=== PATIENT | female | born 1975 | race Caucasian/White ===

== ENCOUNTER → 2023-08-21 09:26 | Outpatient (REF) | payer BC, SELFPAY | LOC: HWRAD 09:26 | PROVIDERS: ATTENDING PHYSICIAN Physician Assistant Medical | DX: R79.89 Other specified abnormal findings of blood chemistry (principal) | CPT/HCPCS: 76700 ==

== ENCOUNTER 2024-02-27 19:35 | Inpatient (IN) | payer BC, SELFPAY ==
[2024-02-27] VITALS (10 sets, daily range): BP systolic 97–126; BP diastolic 63–84; PULSE 2–77; BMI 32.6
[2024-02-27 15:40] LABS: % Basophils 1.3 % (0-2); % Eosinophils 1.8 % (0-6); % Lymphocytes 19.5 % (20.5-51.1); % Monocytes 11.1 % (1.7-9.3); % Neutrophils 65.3 % (42.2-75.2); Absolute Basophils 0.1 10^3/uL (0-0.2); Absolute Eosinophils 0.1 10^3/uL (0-0.7); Absolute Immature Granulocytes 0.1 10^3/uL (0-0.05); Absolute Lymphocytes 1.5 10^3/uL (1.2-3.4); Absolute Monocytes 0.9 10^3/uL (0.1-0.6); Hematocrit 41.8 % (37.0-47.0); Hemoglobin 11.5 g/dL (12.0-16.0); Mean Corp Hgb Conc. 27.5 g/dL (33.0-37.0); Mean Corpuscular Hgb 25.2 pg (27.0-31.0); Mean Corpuscular Volume 91.7 fL (81.0-99.0); Nucleated Red Blood Cells % 0 %; Platelet Count 264 10^3/uL (130-400); Red Blood Cell Count 4.56 10^6/uL (4.20-5.40); Red Cell Dist. Width 14.5 % (11.5-14.5); White Blood Cell Count 7.6 10^3/uL (4.8-10.8)
[2024-02-27 15:44] LABS: ALT (SGPT) 63 U/L (0-35); AST (SGOT) 31 U/L (14-36); Albumin 3.5 g/dl (3.5-5.0); Alkaline Phosphatase 161 U/L (38-126); Blood Urea Nitrogen 12 mg/dl (7-17); Calcium 9.3 mg/dl (8.4-10.2); Chloride 93 mmol/L (98-107); Glucose 105 mg/dl (70-99); Potassium 3.5 mmol/L (3.5-5.1); Sodium 146 mmol/L (135-145); Total Bilirubin 0.9 mg/dl (0.2-1.3); Total Protein 6.4 g/dl (6.3-8.2); eGFR > 60.00
[2024-02-27 15:45] LABS: COVID-19 Antigen Negative (Negative)
[2024-02-27 16:03] LABS: Carbon Dioxide 43 mmol/L (22-30); Hypochromasia 1+; Macrocytosis Slight
[2024-02-27 16:04] LABS: Stomatocytes 1+
[2024-02-27 16:05] LABS: Anisocytosis 1+; Normal RBC Morphology No
--- NOTE | 2024-02-27 16:52 | ED.GENMED ---
History of Present Illness
General
Chief Complaint: Breathing Problem
Time Seen by Provider: 02/27/24 16:27
History of Present Illness
History of Present Illness:
48-year-old female with history of restrictive lung disease, prior subdural hematoma, and respiratory failure status post tracheostomy and subsequent reversal presents to the emergency department for evaluation of fatigue and malaise for the past 4
to 5 days. No coughing. Noted to have suboptimal oxygen saturations at nighttime while on supplemental O2, normally on 1 L nasal cannula but was increased to as high as 4 L by family. They note that the fatigue did not noticeably improve despite
improvement in oxygenation. No fevers or chills reported
Past History
Past History
ED Past Medical History: GERD
ED Past Surgical History: None
Social History
Tobacco: Smoker
Alcohol: None
Drug: None
Personal:
Living: with family
Review of Systems
Review of Systems
Allergies reviewed?: Yes
All Other Systems: ROS reviewed and negative except as documented in HPI and ROS
Phy Exam
Physical Exam
Physical Exam:
GEN: Somnolent but arouses easily to voice
HEENT: Oral mucosa moist, no scleral icterus
Cardiac: Regular rate and rhythm, subtle systolic murmur heard at the left sternal border
Lung: No respiratory distress, no tachypnea
MSK: No gross deformity or injuries
Skin: Good color, no pallor or jaundice, no rashes
Neuro: AO x3, moves all extremities freely
Psych: Calm, cooperative
Scores
Heart Failure Risk
Heart Failure Risk Score: Not Applicable
Course
Orders/Labs/Results
Orders:
Orders
02/27/24 Breakfast
Cholesterol Lowering
Cholesterol Lowering: Sodium, 2 Gram
02/27/24 15:06
CXR2 [CR Chest - 2 Views ] Urgent
Comment:
Reason For Exam: difficulty breathing
02/27/24 15:15
COVID-19 Antigen Urgent
Source: Nasal Swab
Complete Blood Count/With Diff Urgent
Comprehensive Metabolic Panel Urgent
NT-proBNP Urgent
Comment: ADDON
Influenza A+B Rapid Molecular Urgent
VIDAL Source: Nasal Swab
Specimen Description:
02/27/24 16:51
CefTRIAXone [Rocephin] 1,000 mg IV NOW STA
Doxycycline [Vibramycin] 100 mg PO NOW STA
02/27/24 17:06
ABG [Arterial Blood Gas] Urgent
%Oxygen/Room Air: 99
Comment: 4L NC
02/27/24 18:48
Weight As Directed
Frequency: Once
02/27/24 18:57
Admit/Transfer Patient As Directed
Co-Sign Provider:
Level of Care: Inpatient admission
Assign to:: ICU
Physician / Group: brittaniy
Diagnosis: PNA, acute on chr hypercapnic hypoxic RF, acute on chr Resp acidosis
Reason for Hospitalization: Rt sided PNA: suspect recurrent: afebrile and nl WCC
Associated with acute on chr hypercapnic hypoxic RF
Compensated acute on chr Resp acidosis
Expected length of stay greater than two midnights?: Yes
ELOS- Estimated Length of Stay in days: 7
I certify the patient meets the requirements for IP care: Yes
02/27/24 18:59
Add On- LAB Urgent
Tests Added?: pro bnp
Code Status As Directed
Resuscitation Status: Full Code
02/27/24 20:55
Famotidine [Pepcid] 20 mg PO BID
02/27/24 20:55
Activity As Directed
Activity Level: Out of Bed-Early Mobility
Intake/ Output As Directed
Frequency: Per unit guidelines
Vital Signs As Directed
Frequency: Per unit guidelines
Weight As Directed
Frequency: Once
Comment: on admission
Bipap [RESP] Routine
Patient to use own unit?: No
Inspiratory Pressure (cm H2O): 14
Expiratory Pressure (cm H2O): 4
Pulse Ox/cont/shift [RESP] Routine
Quantity: 1
Pt Eval And Treat Routine
Activity Level: With Assistance
DX Deep Vein Thrombosis Video Routine
02/28/24 06:00
Complete Blood Count/No Diff IN AM
Comprehensive Metabolic Panel IN AM
Procalcitonin IN AM
PCT Algorithmm Indication: Respiratory
02/28/24 08:00
Doxycycline [Vibramycin] 100 mg PO Q12
Midodrine [ProAmatine] 10 mg PO DAILY
02/28/24 18:00
CefTRIAXone [Rocephin] 1,000 mg IV Q24H
Enoxaparin Sodium [Lovenox] 40 mg SC QPM
02/29/24 06:00
Comprehensive Metabolic Panel IN AM
03/01/24 06:00
Comprehensive Metabolic Panel IN AM
Abnormal Lab Results
02/27/24 02/27/24
15:15 17:06
Hgb 11.5 L g/dL
(12.0-16.0)
MCH 25.2 L pg
(27.0-31.0)
MCHC 27.5 L g/dL
(33.0-37.0)
Abs Immat Gran (auto) 0.1 H 10^3/uL
(0-0.05)
Absolute Monos (auto) 0.9 H 10^3/uL
(0.1-0.6)
Immature Gran % 1.0 H %
(0-0.5)
Lymphocytes % 19.5 L %
(20.5-51.1)
Monocytes % 11.1 H %
(1.7-9.3)
pCO2 80 H* mmHg
(32-35)
pO2 121 H mmHg
(83-108)
HCO3 49.6 H* mmol/L
(21-28)
ABG O2 Sat (Measured) 99.8 H %
(94-98)
Sodium 146 H mmol/L
(135-145)
Chloride 93 L mmol/L
(98-107)
Carbon Dioxide 43 H mmol/L
(22-30)
Glucose 105 H mg/dl
(70-99)
ALT 63 H U/L
(0-35)
Alkaline Phosphatase 161 H U/L
(38-126)
02/27/24 15:15
02/27/24 15:15
Vital Signs
Initial and Last Documented VS:
Initial Vital Signs
Temp Pulse Resp BP Pulse Ox
97.6 F 68 22 126/84 100
02/27/24 14:56 02/27/24 14:56 02/27/24 14:56 02/27/24 14:56 02/27/24 14:56
Last Documented Vital Signs
Temp Pulse Resp BP Pulse Ox
97.6 F 74 14 110/74 93
02/27/24 14:56 02/27/24 21:06 02/27/24 21:06 02/27/24 19:01 02/27/24 21:00
MDM/Problems Addressed
MDM/Problems Addressed:
Patient arriving with generalized fatigue, she does appear somewhat somnolent, after initial workup revealing right sided pneumonia but otherwise normal labs and ABG was checked showing significant hypercapnia although a large component of this is
very likely chronic evidenced by markedly elevated bicarb. Patient was advised that we should start BiPAP however she declined, admitted to the hospitalist service who then further encouraged the use of BiPAP which she eventually consented to.
BiPAP initiated in the ED and admitted to the intensive care unit
*Critical Care Note
Total Time (30-74mins, 75-104mins- exclusive of procedures): 40 minutes
comment:
Critical care time: 40 minutes
Critical care time was exclusive of: Separately billable procedures, treating other patients, and teaching time
Critical care was necessary to treat or prevent imminent or life-threatening deterioration of the following conditions: Hypercapnic respiratory failure
Critical care time spent personally by me on the following activities:
[x] Review of old charts
[x] Obtaining history from patient or surrogate
[x] Ordering and review of the laboratory studies
[x] Ordering and review of radiographic studies
[x] Ordering and performing treatments and interventions
[x] Patient patient's response to treatment
[x] Development of treatment plan with patient or surrogate
ED Attending Note
-
Portions of this chart may have been created with voice recognition software.� Occasional wrong word or��sound alike� substitutions may have occurred due to the inherent limitations of voice recognition software.
Discharge Plan
Departure
Patient Disposition: Admit
Date of Disposition: 02/27/24
Time of Disposition: 17:49
Admit to: Med/Surg
Presentation/result/management discussed w/ accepting MD/DO: Hospitalist
Discharge Problem:
Community acquired pneumonia, Acute and chronic respiratory failure with hypercapnia
Interventions
Interventions:
*Risk Screen - Suicide Last Done: 02/27/24 16:59
*General Assessment Last Done: 02/27/24 15:04
*Neglect/Abuse Screening Last Done: 02/27/24 21:11
ED- Fall Risk Assessment Last Done: 02/27/24 21:11
*ED COVID-19 Vaccine History Last Done: 02/27/24 16:59
*Nursing Disposition Last Done: 02/27/24 21:11
ED- Cardiac Assessment Last Done: 02/27/24 18:51
ED- Pulmonary Assessment Last Done: 02/27/24 19:26
Discharge Date and Time
Discharge Date/Time: 02/27/24 21:12
[2024-02-27 17:23] LABS: B.E. 20.9 mmol/L; O2 Saturation % 99.8 % (94-98); PO2 121 mmHg (83-108)
[2024-02-27 17:24] LABS: HCO3 49.6 mmol/L (21-28); PCO2 80 mmHg (32-35)
[2024-02-27] MEDS: ROCEPHIN 1000 MG IV (17:34)
[2024-02-27] MEDS: VIBRAMYCIN 100 MG PO (17:34)
--- NOTE | 2024-02-27 18:51 | HPS.HSE ---
Family Physician
-
Family Physician: Shahrzad Cordova
Chief Complaint
-
Low POx than usual, more chr home O2 need
History of Present Illness
48FHX restrictive lung disease, HX subdural hematoma in 2022 , and chr respiratory failure status post tracheostomy and subsequent reversal seen at ER:
- Evaluation o fatigue and malaise for the past 4 to 5 days.
- Noted suboptimal POx at night while baseline needs f 1 L nasal cannula but increased to as high as 4 L by family.
- Denied coughing. They note that the fatigue did not noticeably improve despite improvement in oxygenation. No fevers or chills reported
Medical History
Past Medical History
Past Medical History: Reports Other
Additional Past Medical History:
Past medical history and archive reviewed:
GERD
Urinary incontinence.
Family history of muscular dystrophy
Social history: Lives with the family, the rest cannot be obtained
Family history: Positive for some form of muscular dystrophy the rest cannot be obtained.
Past Surgical History: Reports Other
Social History
Unable to obtain full social history at this time due to: Other
Living: Other
Family History
Family History: Other
Allergies / Home Medications
Allergies reflects when Allergies were last updated in [facility].
Home Medications with original date entered in [facility]
Allergy/Medication List:
Allergies
Allergy/AdvReac Type Severity Reaction Status Date / Time
No Known Allergies Allergy Verified 12/09/22 12:59
Home Medications
famotidine 20 mg tablet (Pepcid) 20 mg PO BID PRN acid reflux 12/09/22
mirabegron 50 mg tablet,extended release 24 hr (Myrbetriq) 50 mg PO QPM 12/09/22
Review of Systems
-
Constitutional: Reports See HPI
EENT: Reports No Symptoms
Respiratory: Reports See HPI
Cardiac: Reports No Symptoms
Abdomen/GI: Reports No Symptoms
: Reports No Symptoms
Musculoskeletal: Reports No Symptoms
Skin: Reports No Symptoms
Neurological: Reports No Symptoms
Endocrine: Reports No Symptoms
Hematologic/Lymphatic: Reports No Symptoms
Psych: Reports No Symptoms
Physical Exam
Vital Signs
Vital Signs
Temp Pulse Resp BP Pulse Ox
97.6 F 66 14 117/68 98
02/27/24 14:56 02/27/24 18:45 02/27/24 18:30 02/27/24 18:00 02/27/24 18:45
Physical Exam
General: Other (Lethargig but appropriate )
HEENT: NormoCephalic, Moist mucous membranes and Atraumatic
Respiratory: Clear
Cardiac: S1/S2 and Regular Rhythm; No Murmur or Rub
GI: Soft, Non Tender, Non Distended and Normal Bowel Sounds; No Organomegaly
Rectal: Deferred by Provider
Musculoskeletal: No Clubbing, No Cyanosis and No Edema
Skin: No Rash
Neuro: Nonfocal/grossly intact
Psych: Calm
Laboratory Results
-
02/27/24 15:15
02/27/24 15:15
Laboratory Results
pH 7.40 (7.35-7.45) 02/27/24 17:06
pCO2 80 mmHg (32-35) H* 02/27/24 17:06
pO2 121 mmHg (83-108) H 02/27/24 17:06
HCO3 49.6 mmol/L (21-28) H* 02/27/24 17:06
Total Bilirubin 0.9 mg/dl (0.2-1.3) 02/27/24 15:15
AST 31 U/L (14-36) 02/27/24 15:15
ALT 63 U/L (0-35) H 02/27/24 15:15
Alkaline Phosphatase 161 U/L (38-126) H 02/27/24 15:15
Data Reviewed
-
Diagnostic Radiology: Report Reviewed by me
Lab Data: Labs Reviewed by me
Old Records: Reviewed
Impression/Plan
-
Vital Signs
Temp Pulse Resp BP Pulse Ox
97.6 F 66 14 117/68 98
02/27/24 14:56 02/27/24 18:45 02/27/24 18:30 02/27/24 18:00 02/27/24 18:45
12/12/22
06:00 02/27/24
14:56
Temp 97.6 F
Pulse 68
Resp Rate 22
Blood pressure 126/84
SaO2 100
Actual Weight 94.3 kg pending
Laboratory Tests
12/09/22 12/12/22 12/12/22
13:05 00:12 10:18
WBC
Hgb 11.0 L
Plt Count
pH
pCO2 72 H*
pO2 123 H
HCO3 43.6 H*
Base Excess
Sodium
Potassium
Chloride
Carbon Dioxide
Creatinine
eGFR
ALT 162 H
Alkaline Phosphatase
SARS-CoV-2 Antigen
02/27/24 02/27/24
15:15 17:06
WBC 7.6
Hgb 11.5 L
Plt Count 264
pH 7.40
pCO2 80 H*
pO2 121 H
HCO3 49.6 H*
Base Excess 20.9
Sodium 146 H
Potassium 3.5
Chloride 93 L
Carbon Dioxide 43 H
Creatinine 0.7
eGFR > 60.00
ALT 63 H
Alkaline Phosphatase 161 H
SARS-CoV-2 Antigen Negative
CXR
Findings chest a mild right infrahilar pneumonia. New
Mild mid right lung atelectasis versus scarring. New
12/11/22 CT chest
Moderate right lower lobe consolidation. Slightly improved.
Mild right upper lobe consolidation.
Stable. Mild left lower lobe consolidation. Progressed.
Last hospitalist admission: Date of Admission: 12/09/22 - Date of Discharge: 12/12/22
PDX:
change in mental status and hypoxic respiratory failure.
left subdural hematoma around 2 cm with 6 mm midline shift required TF to [place] neurosurgery services.
ASSESSMENT & PLAN
Rt sided PNA: suspect recurrent: afebrile and nl WCC
Associated with acute on chr hypercapnic hypoxic RF
Compensated acute on chr Resp acidosis required ICU admission
Suspicion for [facility]ICO and OHS
- Influenza is negative / COVID is negative
- check PCT
- IV CFTZ and PO Doxy
- She agreed to wear Bi PAP 06/07
- Computational Scientist consult
TME due to acute on chr hypercapnic hypoxic RF
She is awake, followed simple commands
HX diastolic CHF
12/09/2022 TTE; LVEF 68%, moderate TR with PA systolic of 56 mm Hg
- check admission wt
- check proBNP
-Hold of Lasix for now
HX Isolated distal deep vein thrombosis of the right soleal vein.
HX Moderate TR.
Estimated pulmonary artery pressure of 56 mmHg assuming a right atrial pressure of 8 mmHg.
GERD:
- Continue PPI
DVT prophylaxis: LMWH
Full code
ICU
Total Critical Care Time__65___ minutes.
I was immediately available to the patient and staff. I personally examined, reviewed labs, diagnostic images/reports, interpretations, treatment plans, discussed patient care with other providers and family or caregivers (if patient is unable to
make decisions), entered orders as appropriate and documented the medical record.
[2024-02-27 19:48] LABS: NT-proBNP 1750 pg/ml
[2024-02-27 21:35] LABS: O2 Saturation % 94.8 % (94-98); PO2 64 mmHg (83-108); pH 7.43 (7.35-7.45)
[2024-02-27 21:37] LABS: HCO3 47.8 mmol/L (21-28); PCO2 72 mmHg (32-35)
[2024-02-27] MEDS: PEPCID PO (22:28)
[2024-02-28] VITALS (24 sets, daily range): BP systolic 87–136; BP diastolic 54–89; PULSE 2–82; O2SAT 96; BMI 32.8
--- NOTE | 2024-02-28 01:31 | PTCARENOTE ---
Rec'd pt from ED c/o malaise and requiring more oxygen at night. Pt normally on 1L nc, increased to 4L nc. ABG 7.40/80/121/49.6/20.9/99.8, decision made to admit to ICU for BiPap. Antibiotics given in ED. Pt oriented/lethargic, arouses to voice. No
c/o pain, but uncomfortable when positioned on left side, 2/2 scoliosis history. As per family, pt currently attended outpatient PT at [facility] 3x/week, and uses a cane at home. Generalized weakness noted. Afebrile. VSS. Pulses palpable. Bipap
as ordered. Repeat ABG improved slightly. Pt tolerating mask and educated on importance of compliance. When providing mouth care, O2 Sat immediately to 70s, and improves within seconds when BiPap reapplied. Cholesterol lowering diet ordered for AM.
Purewick applied. Will monitor.
--- NOTE | 2024-02-28 05:00 | PTCARENOTE ---
Pt continues on bipap. When removed, pt desats quickly to 76%, and recovers quickly with mask replacement. Am labs sent, mom updated over the phone, Will monitor.
[2024-02-28 06:10] LABS: Hematocrit 38.1 % (37.0-47.0); Hemoglobin 10.6 g/dL (12.0-16.0); Mean Corp Hgb Conc. 27.8 g/dL (33.0-37.0); Mean Corpuscular Hgb 25.5 pg (27.0-31.0); Mean Corpuscular Volume 91.8 fL (81.0-99.0); Mean Platelet Volume 9.9 fL (7.4-10.4); Platelet Count 202 10^3/uL (130-400); Red Blood Cell Count 4.15 10^6/uL (4.20-5.40); Red Cell Dist. Width 14.6 % (11.5-14.5); White Blood Cell Count 6.2 10^3/uL (4.8-10.8)
[2024-02-28 06:12] LABS: INR 0.92; PT 12.8 Sec (11.4-14.6)
[2024-02-28 06:13] LABS: APTT 34.9 Sec (23.4-35.0)
[2024-02-28 06:20] LABS: ALT (SGPT) 48 U/L (0-35); AST (SGOT) 23 U/L (14-36); Albumin 3.1 g/dl (3.5-5.0); Alkaline Phosphatase 132 U/L (38-126); Blood Urea Nitrogen 12 mg/dl (7-17); Calcium 9.2 mg/dl (8.4-10.2); Chloride 94 mmol/L (98-107); Estimated Creatinine Clearance 107 ml/min; Glucose 79 mg/dl (70-99); Magnesium 1.9 mg/dl (1.6-2.3); Phosphorus 2.3 mg/dl (2.5-4.5); Sodium 146 mmol/L (135-145); Total Bilirubin 0.9 mg/dl (0.2-1.3); Total Protein 5.7 g/dl (6.3-8.2); eGFR > 60.00
[2024-02-28 06:36] LABS: Procalcitonin < 0.05 ng/ml (0.0-0.25)
[2024-02-28 06:40] LABS: Carbon Dioxide 43 mmol/L (22-30)
[2024-02-28] MEDS: ProAmatine 10 MG PO (08:14)
[2024-02-28] MEDS: VIBRAMYCIN 100 MG PO ×2 (08:14→20:34)
[2024-02-28] MEDS: KCL 270 MEQ IV (08:14)
[2024-02-28] MEDS: PEPCID 20 MG PO ×2 (08:14→20:34)
--- NOTE | 2024-02-28 08:39 | W.PN.HOSP.TC ---
Today's Communication/Plan
-
PT/OT
cont abx
consideration for transfer out of ICU
Assessment / Plan
Assessment / Plan
pt is a 48 year old female
Associated with acute on chronic hypercapnic hypoxic RF due to Rt sided PNA-- suspect recurrent--suspicion for obstructive sleep apnea and obesity hypoventilation syndrome--covid/flu negative--cont rocephin/doxy--await collar tacker consult
toxic metabolic encephalopathy likely due to acute on chronic Compensated Resp acidosis-- on BiPAP--follow for improvement
HX diastolic CHF --no exacerbation--last echo done 12/09/2022--no need for repeeat at this time
HX Isolated distal deep vein thrombosis of the right soleal vein
Hx SDH from anticoagulation for hx DVT--walks with a cane
HX Moderate TR
GERD- Continue PPI
DVT proph--SCDs
code status -- FULL CODE
Anticipated Discharge: > 48 hours
Subjective/Interval History
-
Date of Service: February 28, 2024
pt wouldn't or couldn't interact with me this AM--on BiPAP
Objective Data
-
Labs:
Laboratory Results
02/27/24 02/28/24 02/28/24
21:28 05:38 05:44
WBC 6.2
Hgb 10.6 L
Hct 38.1
Plt Count 202 D
PT 12.8
INR 0.92
APTT 34.9
HCO3 47.8 H*
Sodium 146 H
Potassium 3.0 L
Chloride 94 L
Carbon Dioxide 43 H
BUN 12
Creatinine 0.7
Glucose 79
Calcium 9.2
Total Bilirubin 0.9
AST 23
ALT 48 H
Alkaline Phosphatase 132 H
Vital Signs:
max temp for 24 hours
02/28/24
03:29
Temp 98.4 F
Vital Signs
Temp Pulse Resp BP Pulse Ox
98.4 F 72 14 111/69 89
02/28/24 07:55 02/28/24 08:30 02/28/24 08:30 02/28/24 08:30 02/28/24 08:30
Review of Systems
-
Unable to obtain full review of systems at this time due to: Acuity
Physical Exam
-
General: Well Developed, Well Nourished and No Apparent Distress
HEENT: Normocephalic, Atraumatic and Other (BiPAP)
Respiratory: Clear to Auscultation; Negative Wheezes or Rhonchi
Cardiac: Regular Rhythm and S1/S2; Negative Murmur
GI: Soft, Nontender, Nondistended and Normal Bowel Sounds
Musculoskeletal: No Clubbing, No Cyanosis and No Edema
Skin: Warm
Neuro: Awake
Psych: Calm
--- NOTE | 2024-02-28 09:12 | CM ---
Addendum entered by Monisha Beckwith 02/28/24 16:55:
Patient Alex; called back he stated that they had used [facility] [place]. Patient bringing picture of contact information to hospital tomorrow. Will need to send request for DME.
Addendum entered by Monisha Beckwith 02/28/24 16:40:
CM called to patient mother,and then to patient to request name of O2 provider. VM left requesting name of the O2 provider. CM will continue to follow for discharge planning needs.
Plan; home with VN; pending DME recommendation for BiPap requested.
Addendum entered by Monisha Beckwith 02/28/24 16:39:
CM called to patient mother to requ
Original Note:
Patient seen at bedside with physician. Patient on Bipap, patient stated that she has home O2 1 liter and is uncertain who it is from. Patient states that she lives in a 3 story home with her . Patient has PCP but is unsure of name. Patient
requested CM call to her to review assessment. CM will continue to follow for discharge planning needs.
Plan; home with VN vs SNF.
--- NOTE | 2024-02-28 11:32 | PTOTSP ---
Dysphagia Evaluation
Suspect oral/pharyngeal stages of swallowing WFL based on clinical bedside swallowing evaluation.
Recommend:
1. Regular, Thin
2. Medications as best tolerated
3. Strategies: reflux precautions given GERD and hiatal hernia
4. No further dysphagia tx warranted. If concerned for silent aspiration reconsult via video swallow study.
--- NOTE | 2024-02-28 11:52 | CON.INTV ---
Consultation
Consultation Request
Date/Time Consultation Requested: 02/27/2024 22:14
Date/Time Consultation Performed: 02/28/2024
Requesting Provider: Nathaniel Cuba
Performing Provider: Dr. Faria
Reason for Consultation: acute on chr hypercapnic hypoxic RF, PNA, TME
Medical History
-
History of Present Illness:
48-year-old female with medical history of restrictive lung disease, history of subdural hematoma 2022, GERD, urinary incontinence, DVT, respiratory failure status post tracheostomy and subsequent reversal presented to the emergency department with
fatigue and malaise for the past 4 to 5 days. She has a baseline of 1 L of oxygen at home, but has noticed increased oxygen requirements as high as 4 due to suboptimal pulse ox readings. Patient denied any chest pain, coughing, fever, chills. In
ED, O2 satting 93% on 2L via Bipap, afebrile, pulse 66, respiratory rate 14, BP 117/68, pH 7.4, pCO2 80, HCO3 49.6, WBC 7.6. proBNP 1, 750. chest x-ray revealed mild right infrahilar pneumonia and mid right lung atelectasis versus scarring. Flu
and COVID-negative. Patient was admitted for suspected recurrent right sided pneumonia with associated acute on chronic hypercapnic hypoxemic respiratory failure. ICU was consulted to address acute on chronic respiratory acidosis.
PMHx
Chronic back pain
Scoliosis
Subdural hematoma
Dysphagia
GERD
Urinary incontinence
Obesity
Restrictive lung disease
HFpEF (last echo 923 LVEF 68%)
DVT
Iron deficiency anemia
Family history of myotonic muscular dystrophy - only 1/3 of Mr. Sutherland's (dad) children had negative genetic test at [facility] (Mrs Sutherland and her other brother were not tested)
Past surgical hx:
Status post tracheostomy/PEG
Craniotomy r/t subdural hematoma
Past Medical History
Past Medical History: Other (Refer to above)
Past Surgical History: Other (Refer to above)
Social History
Tobacco: Former Smoker (Quit 2 years ago)
Living: With Family
Family History
Family History: Other (Family history of myotonic muscular dystrophy)
Allergies / Home Medications
Allergies
Allergy/AdvReac Type Severity Reaction Status Date / Time
No Known Allergies Allergy Verified 02/27/24 14:59
Home Medications
�Medication �Instructions �Recorded �Confirmed �Last Taken �Type
famotidine 20 mg tablet (Pepcid) 20 mg PO BID acid reflux 12/09/22 02/27/24 02/27/24 History
ascorbic acid (vitamin C) 500 mg 500 mg PO DAILY 02/27/24 02/27/24 02/27/24 History
tablet (Vitamin C)
cholecalciferol (vitamin D3) 25 25 mcg PO DAILY 02/27/24 02/27/24 02/27/24 History
mcg (1,000 unit) tablet
cyanocobalamin (vitamin B-12) 1,000 mcg PO DAILY 02/27/24 02/27/24 02/27/24 History
1,000 mcg tablet
ferrous sulfate 325 mg (65 mg 325 mg PO Q48H 02/27/24 02/27/24 02/26/24 History
iron) tablet
midodrine 5 mg tablet 10 mg PO DAILY 02/27/24 02/27/24 02/27/24 History
Review of Systems
-
History Source: Patient
Constitutional: Fever (n) and Fatigue
EENT: No Symptoms
Respiratory: No Symptoms (on 4L O2 no SOB or trouble breathing) and Cough (n)
Cardiac: No Symptoms, Chest Pain (n), Palpitations (n) and Syncope (n)
Abdomen/GI: No Symptoms, Abdominal Pain (n), Nausea (n), Vomiting (n), Diarrhea (n) and Constipated (n)
: No Symptoms
Neuro: No Symptoms, Headache (n) and Weakness (Generalized)
Vitals / Labs / Diagnostic Testing
Vital Signs
Temp Pulse Resp BP Pulse Ox
98.0 F 72 14 111/69 89
02/28/24 11:36 02/28/24 08:30 02/28/24 08:30 02/28/24 08:30 02/28/24 08:30
Lab Data
02/28/24 05:38
02/28/24 05:38
Laboratory Results
02/27/24 02/27/24 02/28/24
17:06 21:28 05:44
PT 12.8
INR 0.92
APTT 34.9
pH 7.40 7.43
pCO2 80 H* 72 H*
pO2 121 H 64 L
HCO3 49.6 H* 47.8 H*
O2 Delivery Level
Microbiology
02/27/24 15:15 Nasal Swab Influenza Types A & B (ABI) - Final
Negative for Influenza A & B, NAAT
Negative results must be combined with clinical observations
and patient history.
Nucleic Acid Amplification test (NAAT)performed on the
[employer] platform.
Diagnostic Testing:
Physical Exam
-
Cardiovascular: S1/S2, Regular Rhythm and Peripheral Edema (n)
Respiratory: Rales (Diffuse)
GI: Soft, Non Distended, Non Tender and Normal Bowel Sounds
Neurology: AO x 3
Skin: Warm
Assessment
-
48-year-old female with medical history of restrictive lung disease, history of subdural hematoma 2022, GERD, urinary incontinence, DVT, respiratory failure status post tracheostomy and subsequent reversal presented to the emergency department with
fatigue and malaise for the past 4 to 5 days. She has a baseline of 1 L of oxygen at home, but has noticed increased oxygen requirements as high as 4 due to suboptimal pulse ox readings. Patient denied any chest pain, coughing, fever, chills. In
ED, O2 satting 93% on 2L via Bipap, afebrile, pulse 66, respiratory rate 14, BP 117/68, pH 7.4, pCO2 80, HCO3 49.6, WBC 7.6. proBNP 1, 750. chest x-ray revealed mild right infrahilar pneumonia and mid right lung atelectasis versus scarring. Flu
and COVID-negative. Patient was admitted for suspected recurrent right sided pneumonia with associated acute on chronic hypercapnic hypoxemic respiratory failure. ICU was consulted to address acute on chronic respiratory acidosis.
Conditions prior to admission:
Chronic back pain
Scoliosis
Subdural hematoma
Dysphagia
GERD
Urinary incontinence
Obesity
Restrictive lung disease
HFpEF (last echo 923 LVEF 68%)
DVT
Iron deficiency anemia
Family history of myotonic muscular dystrophy - only 1/3 of Mr. Sutherland's (dad) children had negative genetic test at [facility] (Mrs Sutherland and her other brother were not tested)
Impression:
# Acute on chronic hypercapnic hypoxemic respiratory failure secondary to pneumonia
# Right infrahilar pneumonia
# Toxic metabolic encephalopathy
# Compensated acute on chronic respiratory acidosis
# Hypokalemia
# Hypophosphatemia
Plan:
Neuro:
-Toxic metabolic encephalopathy
-Improved/resolved - pt AAOx3 today
-Likely secondary to hypercapnic state
-Continue to monitor
Respiratory:
-Acute on chronic hypercapnic hypoxemic respiratory failure secondary to pneumonia
-On admission, pH 7.4, pCO2 80, pO2 121, HCO3 49.3
-Bipap overnight 06/11
-AM VBG pH 7.43 and pCO2 72
-Apparent compensated acute on chronic respiratory acidosis likely at baseline
-Suspect underlying CHICO
-Continue Bipap at night
-Keep SpO2 >90-94%
-Hx Restrictive lung disease
-PFTs
Cardiovascular:
-Hemodynamically stable
-Maintain MAP >65%
-Hx of HFpEF
-Last echo 11/2022 LVEF 68%, pulm artery pressure 56%
-Not in volume overload
-Chest x-ray not consistent with cardiopulm edema
-Pro BNP 1750
GI:
-Hx GERD
-Continue on home famotidine
Stable for downgrade out of ICU
Pulp Maker will continue to briefly long
Refer to attending note for further details
[2024-02-28] MEDS: KCL ELIXIR 40 MEQ PO (11:58)
[2024-02-28] MEDS: NEUTRA-PHOS POWDER PACKET 250 MG PO (11:58)
--- NOTE | 2024-02-28 12:25 | PTCARENOTE ---
No change in patient's assessment. patient is awake, alert, has used BSC, ordered lunch after speech eval. Encouraged to use bipap tonight, potential downgrade to tele status.
[2024-02-28] MEDS: STERILE WATER FOR INJECTION 10 ML IV (17:38)
[2024-02-28] MEDS: ROCEPHIN 1000 MG IV (17:38)
[2024-02-29] VITALS (7 sets, daily range): BP systolic 100–130; BP diastolic 65–75; PULSE 2–80
[2024-02-29 06:52] LABS: Venous Blood Gas B.E. 18.6 mmol/L (-4 to +4); Venous Blood Gas HCO3 45.9 mmol/L (22-27); Venous Blood Gas pCO2 66 mmHg (35-48); Venous Blood Gas pH 7.45 (7.32-7.43); Venous Blood Gas pO2 64 mmHg (30-50)
[2024-02-29 07:03] LABS: Hematocrit 39.5 % (37.0-47.0); Hemoglobin 11.3 g/dL (12.0-16.0); Mean Corp Hgb Conc. 28.6 g/dL (33.0-37.0); Mean Corpuscular Hgb 25.2 pg (27.0-31.0); Mean Platelet Volume 9.9 fL (7.4-10.4); Platelet Count 196 10^3/uL (130-400); Red Blood Cell Count 4.49 10^6/uL (4.20-5.40); Red Cell Dist. Width 14.6 % (11.5-14.5); White Blood Cell Count 6.6 10^3/uL (4.8-10.8)
[2024-02-29 07:18] LABS: ALT (SGPT) 36 U/L (0-35); AST (SGOT) 22 U/L (14-36); Albumin 3.3 g/dl (3.5-5.0); Alkaline Phosphatase 136 U/L (38-126); Blood Urea Nitrogen 12 mg/dl (7-17); Calcium 9.4 mg/dl (8.4-10.2); Chloride 96 mmol/L (98-107); Estimated Creatinine Clearance 94 ml/min; Glucose 93 mg/dl (70-99); Magnesium 1.7 mg/dl (1.6-2.3); Phosphorus 2.2 mg/dl (2.5-4.5); Potassium 3.8 mmol/L (3.5-5.1); Sodium 144 mmol/L (135-145); Total Bilirubin 0.9 mg/dl (0.2-1.3); Total Protein 5.9 g/dl (6.3-8.2); eGFR > 60.00
[2024-02-29 08:00] LABS: Carbon Dioxide 38 mmol/L (22-30)
[2024-02-29] MEDS: VIBRAMYCIN 100 MG PO ×2 (09:37→20:41)
[2024-02-29] MEDS: VITAMIN D3 (cholecalciferol) 25 MCG PO (09:37)
[2024-02-29] MEDS: ProAmatine 10 MG PO (09:37)
[2024-02-29] MEDS: VITAMIN B-12 1000 MCG PO (09:38)
[2024-02-29] MEDS: VITAMIN C 500 MG PO (09:38)
[2024-02-29] MEDS: PEPCID 20 MG PO ×2 (09:38→20:41)
--- NOTE | 2024-02-29 09:43 | W.PN.PUL3 ---
Today's Communication / Plan
-
Continue with BiPAP with sleep
Check NOX study tonight on BiPAP on room air, titrating O2 as needed to maintain SpO2 at 89% or greater
During the day, continue supplemental oxygen, titrating to keep SpO2 >90-94%
Check ambulatory pulse oximetry prior to discharge
PT/OT
Antibiotics
Outpatient imaging to follow-up pneumonia resolution
Case management consult to get patient BiPAP upon discharge
Pulmonary service will continue to follow along
Assessment
-
Impression:
#Altered mental status due to septic encephalopathy - AMS now resolved
#Right infrahilar pneumonia/CAP
#Acute on chronic hypoxic respiratory failure (uses O2 at home as needed, and is Rx 1L/min with sleep that she uses)
#Chronic hypercapnic respiratory failure (of note, initial blood gas obtained on 02/27/2024 was prior to her starting on BiPAP)
#Very severe restrictive lung defect (post-bronchodilator FVC: 1.41 L / 30%, T%, VC: 40% via PFT from 12/02/2023)
#Severe gas exchange capacity defect that normalizes when accounting for alveolar volume involving gas exchange (DLcoO: 37%, DLco/VA: 87% via PFT from 12/02/2023)
#Hypernatremia
#Metabolic alkalosis due to chronic hypercapnic respiratory failure
#Transaminitis
#Elevated proBNP
#History of chronic respiratory failure requiring tracheostomy and PEG placement (12/24/2022) with decannulation in 02/2023 - this event was due to some unknown cause of her hypoxia
# History of influenza A + MRSA pneumonia in March 2023 requiring intubation with trach/PEG placed on 04/06/2023 and decannulated on 04/23/2023
#Chronic GERD
#History of RLE DVT in the soleal vein (Dx on 12/10/2022)
#History of valvular heart disease with moderate TR and moderate pulmonary hypertension (seen on TTE from 12/09/2022)
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
decompressive hemicraniectomy (11/2022) + left cranioplasty (01/17/2023), history of oropharyngeal dysphagia s/p PEG (March 2022), former tobacco smoker ([id number] history, quit 2020), and anxiety disorder
Plan:
- Continue with antibiotics with ceftriaxone/doxycycline, and would complete a 7-day course assuming she continues to clinically improve and remains afebrile for 48 hours prior to stopping antibiotics
- Maintain SpO2 >90-94%
- Continue with BiPAP with sleep and prn during the day --> she says that the pressures were too high overnight so I will lower her pressure settings from 15/8 to 12/5cmH2O
- Continue with supplemental oxygen as needed through the BiPAP to maintain SpO2 goals as above
- I consulted CM to see if we can get her a BiPAP upon discharge; the patient is amenable to doing this and using BiPAP at home
- Consult PT/OT given her severe restrictive lung defect that she has; she may benefit from PT services as an outpatient
- Check NOX study tonight on BiPAP to assess her O2 needs to prepare for BiPAP home use
- Check ambulatory pulse oximetry prior to discharge
- Although her proBNP is elevated, she does not clinically appear to be volume overloaded or in acute decompensated heart failure, nor is there any evidence of acute pulmonary edema seen on CXR
-Comparatively, her proBNP is actually less than it was back in November 2022 when it was 2980 (currently 1750)
- Hold off on diuresis for now
- Maintain MAP>65
- She does take midodrine at home; ok to continue this with holding parameters
- Replete electrolytes with K>4, Mg>2
- Maintain euglycemia with goal BG 140-180
- Trend H/H and transfuse if needed to keep Hb>7g/dL; keep plt>20k, unless there is concern for bleeding then keep plt>50k
- prn nebulized bronchodilators - not currently bronchospastic
- Incentive spirometer encouraged 10x per hour for at least 4 hrs a day
- DVT ppx: SCDs given her Hx of subdural hematoma requiring decompressive hemicraniectomy in November 2022
Pulmonary service will continue to follow along.
Total time spent today was 37 minutes for this encounter. Time includes reviewing laboratory test/imaging results, reviewing pertinent medical records, obtaining and reviewing medical history, performing an appropriate exam, ordering medications,
tests and procedures. Time also includes documentation of this encounter, coordinating patient care and communicating with other healthcare professionals. Total time does not include separately billed tests performed on this date of service.
Subjective Data
-
Date of Service:
Date of Service: February 29, 2024
Chief Complaint: Pulmonary Follow Up
Subjective:
Patient was seen and evaluated today at bedside. Patient's mother is at bedside, and all questions were answered. Patient currently on 4 L/min nasal cannula saturating 96%. She wore the BiPAP overnight on 02/26 bled with 6 L/min. She says she was
able to use it the whole night and felt better with the reduced inspiratory pressures. She currently denies chest pain, BENNETT, abdominal pain, nausea, fevers or chills.
Review of Systems
General: Other (Negative unless mentioned above)
Objective Data
Data Reviewed
Vital Signs / I&O / Oxygen:
Vital Signs
Temp Pulse Resp BP Pulse Ox
97.8 F 73 16 121/75 97
02/29/24 07:00 02/29/24 07:00 02/29/24 07:00 02/29/24 07:00 02/29/24 07:00
Intake and Output
02/28/24 02/29/24 03/01/24
06:59 06:59 06:59
Intake Total 930 / 930
Output Total 350 / 350
Balance 580 / 580
SaO2 97
Nasal Cannula flow liters per 3
minute
Physical Exam
General: Respiratory Distress (negative), Comfortable, Chills (negative) and Sweats (negative)
HEENT: Normocephalic, Anicteric and Moist Mucous Membranes
Cardiovascular: S1-S2, Rub (negative) and Peripheral Edema (negative)
Respiratory: Wheeze (negative), Crackles (Bilateral), Rhonchi (negative), Non-Labored Respirations and Stridor (negative)
GI: Soft, Non Distended, Non Tender and Normal Bowel Sounds
Neurology: AO x 3 and Tremors (negative)
Skin: Warm, Dry, Cyanosis (negative) and Jaundice (negative)
Labs/Micro/Reports
Lab Data
02/29/24 06:25
02/29/24 06:25
Microbiology
02/27/24 15:15 Nasal Swab Influenza Types A & B (ABI) - Final
Negative for Influenza A & B, NAAT
Negative results must be combined with clinical observations
and patient history.
Nucleic Acid Amplification test (NAAT)performed on the
[employer] platform.
--- NOTE | 2024-02-29 13:05 | W.PN.HOSP.TC ---
Today's Communication/Plan
-
need BiPAP prior to d/c
Assessment / Plan
Assessment / Plan
pt is a 48 year old female
acute on chronic hypercapnic hypoxic RF due to Rt sided PNA (uses O2 at home as needed, and 1L/min with sleep that she uses)-- suspect recurrent--suspicion for obstructive sleep apnea and obesity hypoventilation syndrome--covid/flu negative--cont
rocephin/doxy--apprec scuba diving teacher consult, needs BiPAP at home
toxic metabolic encephalopathy likely due to acute on chronic Compensated Resp acidosis-- on BiPAP--follow for improvement--resolved
HX diastolic CHF --no exacerbation--last echo done 12/09/2022--no need for repeat at this time
HX Isolated distal deep vein thrombosis of the right soleal vein
Hx SDH from anticoagulation for hx DVT--walks with a cane
HX Moderate TR
GERD- Continue PPI
DVT proph--SCDs
code status -- FULL CODE
Anticipated Discharge: Within 24 hours
Subjective/Interval History
-
Date of Service: February 29, 2024
pt doing well--asking about d/c--explained needs BiPAP at home
Objective Data
-
Labs:
Laboratory Results
02/29/24
06:25
WBC 6.6
Hgb 11.3 L
Hct 39.5
Plt Count 196
Sodium 144
Potassium 3.8 D
Chloride 96 L
Carbon Dioxide 38 H
BUN 12
Creatinine 0.8
Glucose 93
Calcium 9.4
Total Bilirubin 0.9
AST 22
ALT 36 H
Alkaline Phosphatase 136 H
Vital Signs:
max temp for 24 hours
02/28/24
19:20
Temp 98.2 F
Vital Signs
Temp Pulse Resp BP Pulse Ox
97.8 F 73 16 121/75 97
02/29/24 07:00 02/29/24 07:00 02/29/24 07:00 02/29/24 07:00 02/29/24 07:00
I&O
02/28/24 02/29/24 03/01/24
06:59 06:59 06:59
Intake Total 930 / 930
Output Total 350 / 350
Balance 580 / 580
Review of Systems
-
All other systems: Reviewed and negative
Physical Exam
-
General: Well Developed, Well Nourished and No Apparent Distress
HEENT: Normocephalic, Atraumatic and Oxygen
Respiratory: Clear to Auscultation; Negative Wheezes, Rales or Rhonchi
Cardiac: Regular Rhythm and S1/S2; Negative Murmur
GI: Soft, Nontender, Nondistended and Normal Bowel Sounds
Musculoskeletal: No Clubbing, No Cyanosis and No Edema
Skin: Warm and Dry
Neuro: Awake
Psych: Calm
--- NOTE | 2024-02-29 13:07 | CM ---
CM contacted Oxygen Vendor ([employer]) via phone # [phone] regarding order for BiPAP
Script, Demographics and Clinicals faxed to vendor
[facility]; [address] [place] [id number]
[2024-02-29] MEDS: STERILE WATER FOR INJECTION 10 ML IV (17:16)
[2024-02-29] MEDS: ROCEPHIN IV (17:17)
[2024-02-29] MEDS: ROCEPHIN 1000 MG IV (18:30)
[2024-03-01] VITALS (7 sets, daily range): BP systolic 110–126; BP diastolic 65–73; PULSE 2–62
--- NOTE | 2024-03-01 06:24 | RESPNOTE ---
bipap and nocturnal study started at appprox. 2129. pt placed on bipap on RA but by 2149 it was noticed that the pt desaturated to 79%. O2 bled in started at 1 LPM with limited change so O2 increased to 2 LPM with saturation maintaining 91%.
2318, pt lowered to 1 LPM after saturation staying at 96% on 2 LPM. At 8, notified pt removed bipap to use restroom and was placed back on at 001. This may clarify some of the changes in saturation on the nocturnal study
[2024-03-01 06:42] LABS: ALT (SGPT) 32 U/L (0-35); AST (SGOT) 24 U/L (14-36); Albumin 3.5 g/dl (3.5-5.0); Alkaline Phosphatase 121 U/L (38-126); Blood Urea Nitrogen 20 mg/dl (7-17); Calcium 9.6 mg/dl (8.4-10.2); Chloride 95 mmol/L (98-107); Estimated Creatinine Clearance 83 ml/min; Glucose 91 mg/dl (70-99); Magnesium 1.7 mg/dl (1.6-2.3); Potassium 3.9 mmol/L (3.5-5.1); Sodium 140 mmol/L (135-145); Total Bilirubin 0.7 mg/dl (0.2-1.3); Total Protein 6.2 g/dl (6.3-8.2); eGFR > 60.00
[2024-03-01 06:50] LABS: Hematocrit 42.8 % (37.0-47.0); Hemoglobin 12.2 g/dL (12.0-16.0); Mean Corp Hgb Conc. 28.5 g/dL (33.0-37.0); Mean Corpuscular Hgb 25.1 pg (27.0-31.0); Mean Corpuscular Volume 87.9 fL (81.0-99.0); Mean Platelet Volume 10.1 fL (7.4-10.4); Platelet Count 201 10^3/uL (130-400); Red Blood Cell Count 4.87 10^6/uL (4.20-5.40); Red Cell Dist. Width 14.6 % (11.5-14.5); White Blood Cell Count 5.8 10^3/uL (4.8-10.8)
[2024-03-01 06:52] LABS: Carbon Dioxide 37 mmol/L (22-30)
[2024-03-01] MEDS: VIBRAMYCIN 100 MG PO ×2 (09:14→20:26)
[2024-03-01] MEDS: ProAmatine 10 MG PO (09:14)
[2024-03-01] MEDS: VITAMIN B-12 1000 MCG PO (09:14)
[2024-03-01] MEDS: VITAMIN C 500 MG PO (09:14)
[2024-03-01] MEDS: PEPCID 20 MG PO ×2 (09:15→20:26)
[2024-03-01] MEDS: VITAMIN D3 (cholecalciferol) 25 MCG PO (09:15)
--- NOTE | 2024-03-01 09:29 | W.PN.PUL3 ---
Today's Communication / Plan
-
Continue with BiPAP with sleep bled with 2L/min
During the day, continue supplemental oxygen, titrating to keep SpO2 >90-94%
Check ambulatory pulse oximetry prior to discharge
PT/OT
Antibiotics
Outpatient imaging to follow-up pneumonia resolution
Case management consult to get patient BiPAP upon discharge to be bled with 2L/min
Pulmonary service will continue to follow along
Assessment
-
Impression:
#Altered mental status due to septic encephalopathy - AMS now resolved
#Right infrahilar pneumonia/CAP
#Acute on chronic hypoxic respiratory failure (uses O2 at home as needed, and is Rx 1L/min with sleep that she uses)
#Chronic hypercapnic respiratory failure (of note, initial blood gas obtained on 02/27/2024 was prior to her starting on BiPAP)
#Very severe restrictive lung defect (post-bronchodilator FVC: 1.41 L / 30%, T%, VC: 40% via PFT from 12/02/2023)
#Severe gas exchange capacity defect that normalizes when accounting for alveolar volume involving gas exchange (DLcoO: 37%, DLco/VA: 87% via PFT from 12/02/2023)
#Hypernatremia
#Metabolic alkalosis due to chronic hypercapnic respiratory failure
#Transaminitis - resolved
#Elevated proBNP
#History of chronic respiratory failure requiring tracheostomy and PEG placement (12/24/2022) with decannulation in 02/2023 - this event was due to some unknown cause of her hypoxia
# History of influenza A + MRSA pneumonia in March 2023 requiring intubation with trach/PEG placed on 04/06/2023 and decannulated on 04/23/2023
#Chronic GERD
#History of RLE DVT in the soleal vein (Dx on 12/10/2022)
#History of valvular heart disease with moderate TR and moderate pulmonary hypertension (seen on TTE from 12/09/2022)
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
decompressive hemicraniectomy (11/2022) + left cranioplasty (01/17/2023), history of oropharyngeal dysphagia s/p PEG (March 2022), former tobacco smoker (60-[id number] history, quit 2020), and anxiety disorder
Plan:
- Continue with antibiotics with ceftriaxone/doxycycline, and would complete a 7-day course assuming she continues to clinically improve and remains afebrile for 48 hours prior to stopping antibiotics
- Maintain SpO2 >90-94%
- Continue with BiPAP at 12/5cmH2O with sleep and prn during the day
- Continue with supplemental oxygen as needed through the BiPAP to maintain SpO2 goals as above
- I consulted CM to see if we can get her a BiPAP upon discharge; the patient is amenable to doing this and using BiPAP at home
- NOX study overnight showed she still desaturated while on 1L/min. When she was on 2L/min her SpO2 was >94% --> would recommend her to go home on BiPAP with 2L/min
- Consult PT/OT given her severe restrictive lung defect that she has; she may benefit from PT services as an outpatient (they are rec'd home health)
- Check ambulatory pulse oximetry prior to discharge
- Although her proBNP is elevated, she does not clinically appear to be volume overloaded or in acute decompensated heart failure, nor is there any evidence of acute pulmonary edema seen on CXR
- Comparatively, her proBNP is actually less than it was back in November 2022 when it was 2980 (currently 1750)
- Hold off on diuresis for now
- Maintain MAP>65
- She does take midodrine at home; ok to continue this with holding parameters
- Replete electrolytes with K>4, Mg>2
- Maintain euglycemia with goal BG 140-180
- Trend H/H and transfuse if needed to keep Hb>7g/dL; keep plt>20k, unless there is concern for bleeding then keep plt>50k
- prn nebulized bronchodilators - not currently bronchospastic
- Incentive spirometer encouraged 10x per hour for at least 4 hrs a day
- DVT ppx: SCDs given her Hx of subdural hematoma requiring decompressive hemicraniectomy in November 2022
Pulmonary service will continue to follow along.
Total time spent today was 41 minutes for this encounter. Time includes reviewing laboratory test/imaging results, reviewing pertinent medical records, obtaining and reviewing medical history, performing an appropriate exam, ordering medications,
tests and procedures. Time also includes documentation of this encounter, coordinating patient care and communicating with other healthcare professionals. Total time does not include separately billed tests performed on this date of service.
Subjective Data
-
Date of Service:
Date of Service: March 01, 2024
Chief Complaint: Pulmonary Follow Up
Subjective:
Patient was seen and evaluated today at bedside. Patient's , Asa, at bedside and all questions were answered. Patient currently on 1 L/min nasal cannula and breathing comfortably. Afebrile overnight. NOX study performed overnight, with
SpO2 <89% for 1 hour, 1 minute and 46 seconds. After the first 20 minutes she was started on 2 L/min through the BiPAP, but then shortly thereafter she was dropped down to 1 L/min where she stayed for the remainder of the study.
Review of Systems
General: Other (Negative unless mentioned above)
Objective Data
Data Reviewed
Vital Signs / I&O / Oxygen:
Vital Signs
Temp Pulse Resp BP Pulse Ox
98.0 F 74 16 110/67 92
03/01/24 07:59 03/01/24 07:59 03/01/24 07:59 03/01/24 07:59 03/01/24 07:59
Intake and Output
02/29/24 03/01/24 03/02/24
06:59 06:59 06:59
Intake Total 930 / 930 600 / 600
Output Total 350 / 350
Balance 580 / 580 600 / 600
SaO2 92
Nasal Cannula flow liters per 4
minute
Physical Exam
General: Respiratory Distress (negative), Comfortable, Chills (negative) and Sweats (negative)
HEENT: Normocephalic, Anicteric and Moist Mucous Membranes
Cardiovascular: S1-S2, Rub (negative) and Peripheral Edema (negative)
Respiratory: Wheeze (negative), Crackles (Bibasilar), Rhonchi (negative), Non-Labored Respirations and Stridor (negative)
GI: Soft, Non Distended, Non Tender and Normal Bowel Sounds
Neurology: AO x 3 and Tremors (negative)
Skin: Warm, Dry, Cyanosis (negative) and Jaundice (negative)
Labs/Micro/Reports
Lab Data
03/01/24 05:54
03/01/24 05:54
Microbiology
02/27/24 15:15 Nasal Swab Influenza Types A & B (ABI) - Final
Negative for Influenza A & B, NAAT
Negative results must be combined with clinical observations
and patient history.
Nucleic Acid Amplification test (NAAT)performed on the
[employer] platform.
--- NOTE | 2024-03-01 14:18 | W.PN.HOSP.TC ---
Today's Communication/Plan
-
d/c planning
Assessment / Plan
Assessment / Plan
pt is a 48 year old female
acute on chronic hypercapnic hypoxic RF due to Rt sided PNA (uses O2 at home as needed, and 1L/min with sleep that she uses)-- suspect recurrent--suspicion for obstructive sleep apnea and obesity hypoventilation syndrome--covid/flu negative--cont
rocephin/doxy, will need oral ABX at d/c--apprec regional environmental manager consult, needs BiPAP at home
toxic metabolic encephalopathy likely due to acute on chronic Compensated Resp acidosis-- on BiPAP--follow for improvement--resolved
HX diastolic CHF --no exacerbation--last echo done 12/09/2022--no need for repeat at this time
HX Isolated distal deep vein thrombosis of the right soleal vein
Hx SDH from anticoagulation for hx DVT--walks with a cane
HX Moderate TR
GERD- Continue PPI
DVT proph--SCDs
code status -- FULL CODE
Anticipated Discharge: Within 24 hours
Subjective/Interval History
-
Date of Service: March 01, 2024
pt waiting for BiPAP to be delivered
Objective Data
-
Labs:
Laboratory Results
03/01/24
05:54
WBC 5.8
Hgb 12.2
Hct 42.8
Plt Count 201
Sodium 140
Potassium 3.9
Chloride 95 L
Carbon Dioxide 37 H
BUN 20 H
Creatinine 0.9
Glucose 91
Calcium 9.6
Total Bilirubin 0.7
AST 24
ALT 32
Alkaline Phosphatase 121
Vital Signs:
max temp for 24 hours
02/29/24
23:00
Temp 97.8 F
Vital Signs
Temp Pulse Resp BP Pulse Ox
97.4 F 82 16 126/67 93
03/01/24 12:10 03/01/24 12:10 03/01/24 12:10 03/01/24 12:10 03/01/24 12:10
I&O
02/29/24 03/01/24 03/02/24
06:59 06:59 06:59
Intake Total 930 / 930 600 / 600
Output Total 350 / 350
Balance 580 / 580 600 / 600
Review of Systems
-
All other systems: Reviewed and negative
Physical Exam
-
General: Well Developed, Well Nourished and No Apparent Distress
HEENT: Normocephalic, Atraumatic and Oxygen
Respiratory: Clear to Auscultation; Negative Wheezes or Rhonchi
Cardiac: Regular Rhythm and S1/S2; Negative Murmur
GI: Soft, Nontender, Nondistended and Normal Bowel Sounds
Musculoskeletal: No Clubbing, No Cyanosis and No Edema
Skin: Warm
Neuro: Awake
Psych: Calm
--- NOTE | 2024-03-01 14:37 | CM ---
CM Consult completed
Home Health recommended; patient/ agreeable; agency options provided; preference is [facility]; Referral sent via [facility]
[2024-03-01] MEDS: ROCEPHIN 1000 MG IV (17:00)
[2024-03-01] MEDS: STERILE WATER FOR INJECTION 10 ML IV (17:01)
[2024-03-01] MEDS: ZOFRAN 4 MG PO (20:26)
[2024-03-02] VITALS (7 sets, daily range): BP systolic 80–140; BP diastolic 46–78; PULSE 2–81; O2SAT 100
[2024-03-02] MEDS: VITAMIN B-12 1000 MCG PO (08:58)
[2024-03-02] MEDS: VIBRAMYCIN 100 MG PO ×2 (08:58→20:28)
[2024-03-02] MEDS: ProAmatine 10 MG PO (08:58)
[2024-03-02] MEDS: PEPCID 20 MG PO ×2 (08:58→20:28)
[2024-03-02] MEDS: VITAMIN C 500 MG PO (08:58)
[2024-03-02] MEDS: VITAMIN D3 (cholecalciferol) 25 MCG PO (08:58)
--- NOTE | 2024-03-02 13:31 | W.PN.HOSP.TC ---
Today's Communication/Plan
-
pending home BiPAP and D/C CM aware
Assessment / Plan
Assessment / Plan
48yo F with PMHx of DVT, SDH, HFpEF came with confusion, on 1 L chronci home O2, found hypercarbic respiratory failure with RLL pneumonia, pending BiPAP for home. Outpatient BiPAP and O2 pending by CM
A/P:
#Acute septic encephalopathy 2/2 pneumonia
#Acute on chronic hypoxic hypercarbic respiratory failure with acute RLL pneumonia with unspecified organism
#Restrictive lung disease with PMHX of trach
Rocephin/Doxy as per pulmonologoist consult
Outpatient BiPAP and O2 assessment by resp: no desaturation on ambulation - cont home 1L O2. BiPAP pedning
bronchodialtors
#Moderate TR
#GERD
cont home meds
DVT ppxSCDs 2/2 Hx of SDH
Full code
I have spent at least 38min reviewing chart, test results, communication with consultants and direct patientcare
Anticipated Discharge: Within 24 hours
Subjective/Interval History
-
Date of Service: March 02, 2024
Objective Data
-
Vital Signs:
Vital Signs
Temp Pulse Resp BP Pulse Ox
97.5 F 81 18 97/59 95
03/02/24 11:02 03/02/24 11:02 03/02/24 11:02 03/02/24 11:02 03/02/24 11:02
I&O
03/01/24 03/02/24 03/03/24
06:59 06:59 06:59
Intake Total 600 / 600 1200 / 1200
Balance 600 / 600 1200 / 1200
Review of Systems
-
History Source: Patient
All other systems: Reviewed and negative
Physical Exam
-
General: No Apparent Distress
HEENT: Normocephalic
Respiratory: Clear to Auscultation
GI: Soft, Nontender and Nondistended
Neuro: Awake, Alert, Oriented and AO x 3
Psych: Calm
--- NOTE | 2024-03-02 13:44 | W.PN.PUL3 ---
Today's Communication / Plan
-
She would not qualify for home BIPAP, needs outpatient sleep study which we can arrange and patient was agreeable to
Can set up appt for in lab titration study/set up and OP FU--will msg my office to arrange [facility]
Discharge planning otherwise per team
We will arrange her FU care
Assessment
-
Impression:
#Altered mental status due to septic encephalopathy - AMS now resolved
#Right infrahilar pneumonia/CAP
#Acute on chronic hypoxic respiratory failure (uses O2 at home as needed, and is Rx 1L/min with sleep that she uses)
#Chronic hypercapnic respiratory failure (of note, initial blood gas obtained on 02/27/2024 was prior to her starting on BiPAP)
#Very severe restrictive lung defect (post-bronchodilator FVC: 1.41 L / 30%, T%, VC: 40% via PFT from 12/02/2023)
#Severe gas exchange capacity defect that normalizes when accounting for alveolar volume involving gas exchange (DLcoO: 37%, DLco/VA: 87% via PFT from 12/02/2023)
#Hypernatremia
#Metabolic alkalosis due to chronic hypercapnic respiratory failure
#Transaminitis - resolved
#Elevated proBNP
#History of chronic respiratory failure requiring tracheostomy and PEG placement (12/24/2022) with decannulation in 02/2023 - this event was due to some unknown cause of her hypoxia
# History of influenza A + MRSA pneumonia in March 2023 requiring intubation with trach/PEG placed on 04/06/2023 and decannulated on 04/23/2023
#Chronic GERD
#History of RLE DVT in the soleal vein (Dx on 12/10/2022)
#History of valvular heart disease with moderate TR and moderate pulmonary hypertension (seen on TTE from 12/09/2022)
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
decompressive hemicraniectomy (11/2022) + left cranioplasty (01/17/2023), history of oropharyngeal dysphagia s/p PEG (March 2022), former tobacco smoker ([id number] history, quit 2020), and anxiety disorder
Plan:
Continue with antibiotics with ceftriaxone/doxycycline, and would complete a 7-day course assuming she continues to clinically improve and remains afebrile for 48 hours prior to stopping antibiotics
Maintain SpO2 >90-94%
Continue with BiPAP at 12/5cmH2O with sleep and prn during the day
Continue with supplemental oxygen as needed through the BiPAP to maintain SpO2 goals as above
I consulted CM to see if we can get her a BiPAP upon discharge; the patient is amenable to doing this and using BiPAP at home
Recommend outpatient sleep study with titration as she would only qualify for Trilogy from inpatient set up
Consult PT/OT given her severe restrictive lung defect that she has; she may benefit from PT services as an outpatient (they are rec'd home health)
Check ambulatory pulse oximetry prior to discharge
Although her proBNP is elevated, she does not clinically appear to be volume overloaded or in acute decompensated heart failure, nor is there any evidence of acute pulmonary edema seen on CXR
Comparatively, her proBNP is actually less than it was back in November 2022 when it was 2980 (currently 1750)
Hold off on diuresis for now
- Maintain MAP>65
- She does take midodrine at home; ok to continue this with holding parameters
- Replete electrolytes with K>4, Mg>2
- Maintain euglycemia with goal BG 140-180
- Trend H/H and transfuse if needed to keep Hb>7g/dL; keep plt>20k, unless there is concern for bleeding then keep plt>50k
- prn nebulized bronchodilators - not currently bronchospastic
- Incentive spirometer encouraged 10x per hour for at least 4 hrs a day
- DVT ppx: SCDs given her Hx of subdural hematoma requiring decompressive hemicraniectomy in November 2022
Pulmonary service will continue to follow along.
-----
Total time spent today was 51 minutes for this encounter. Time includes reviewing laboratory test/imaging results, reviewing pertinent medical records, obtaining and reviewing medical history, performing an appropriate exam, ordering medications,
tests and procedures. Time also includes documentation of this encounter, coordinating patient care and communicating with other healthcare professionals. Total time does not include separately billed tests performed on this date of service.
Subjective Data
-
Date of Service:
Date of Service: March 02, 2024
Chief Complaint: Pulmonary Follow Up
Subjective:
No acute events ON, she is crying on my arrival bc she wants to go home
No new complaints
Objective Data
Data Reviewed
Vital Signs / I&O / Oxygen:
Vital Signs
Temp Pulse Resp BP Pulse Ox
97.5 F 81 18 97/59 95
03/02/24 11:02 03/02/24 11:02 03/02/24 11:02 03/02/24 11:02 03/02/24 11:02
Intake and Output
03/01/24 03/02/24 03/03/24
06:59 06:59 06:59
Intake Total 600 / 600 1200 / 1200
Balance 600 / 600 1200 / 1200
SaO2 95
Nasal Cannula flow liters per 1
minute
Physical Exam
General: Respiratory Distress (negative), Comfortable, Chills (negative) and Sweats (negative)
HEENT: Normocephalic, Anicteric and Moist Mucous Membranes
Cardiovascular: S1-S2, Rub (negative) and Peripheral Edema (negative)
Respiratory: Wheeze (negative), Crackles (Bibasilar), Rhonchi (negative), Non-Labored Respirations and Stridor (negative)
GI: Soft, Non Distended, Non Tender and Normal Bowel Sounds
Neurology: AO x 3 and Tremors (negative)
Skin: Warm, Dry, Cyanosis (negative) and Jaundice (negative)
Labs/Micro/Reports
Lab Data
03/01/24 05:54
03/01/24 05:54
--- NOTE | 2024-03-02 15:45 | CM ---
Addendum entered by Cristal Hernandez 03/02/24 16:54:
Per Lior, will need CM to look into possible Trilogy NIV machine
Will outreach to [facility] tomorrow during business hours
Original Note:
CM reviewed pt with Dr. Tinajero- medically ready for dc
Calls with [facility], CM to arrange for bipap at home
Nocturnal study and ABG faxed to him [phone] per request
Will need clinical documentation indicating [facility] has been ruled out
Outreach to Dr Billy for documentation
She may consider outpt sleep study instead
Plan pending
Pt has been accepted for VN service by [facility]
VN order on chart
Awaiting pulm plan and documentation for bipap
Pt can be delivered tomorrow home vs bedside dependent on receipt of [facility] documentation
Discharge Disposition- home with [facility], likely with new bipap/[facility]
VN Fax- [phone]
--- NOTE | 2024-03-02 15:50 | PN.CDI ---
CDI
- -
CDI:
Physician Documentation Request
Admit Date: 02/27/24 19:35
Dear Doctor Lior,
Pulmonary / applied psychology chair consultation states 'Acute on chronic hypoxic respiratory failure uses O2 at home as needed, and is Rx 1L/min with sleep'
Please clarify:
Chronic respiratory failure on continuos home O2 use
hypoxia on intermittent home O2 use.
Other
Use of terms such as suspected, likely, concern for, or probable (associated with a specific diagnosis that is being evaluated, monitored, or treated as if it exists) are acceptable and can be coded in the inpatient setting, when documented at the
time of discharge.
Thank you,
Shahrzad Dorantes RN, BSN
CDI Specialist
tiger text
Please use your independent medical judgment in providing your response.
[2024-03-02] MEDS: STERILE WATER FOR INJECTION 10 ML IV (16:55)
[2024-03-02] MEDS: ROCEPHIN 1000 MG IV (16:55)
[2024-03-03] MEDS: ProAmatine 10 MG PO (07:34)
[2024-03-03] MEDS: PEPCID 20 MG PO (07:34)
[2024-03-03] MEDS: VITAMIN B-12 1000 MCG PO (07:34)
[2024-03-03] MEDS: VIBRAMYCIN 100 MG PO (07:34)
[2024-03-03] MEDS: VITAMIN D3 (cholecalciferol) 25 MCG PO (07:34)
[2024-03-03] MEDS: VITAMIN C 500 MG PO (07:34)
[2024-03-03 07:44] VITALS: BP 99/60
--- NOTE | 2024-03-03 08:58 | W.PN.PUL3 ---
Today's Communication / Plan
-
Discussed outpatient sleep study arrangements with patient
Discussed plan of care with team
Discharge planning
We will arrange OP FU following PAP/O2 set up
Assessment
-
Impression:
#Altered mental status due to septic encephalopathy - AMS now resolved
#Right infrahilar pneumonia/CAP
#Acute on chronic hypoxic respiratory failure (uses O2 at home as needed, and is Rx 1L/min with sleep that she uses)
#Chronic hypercapnic respiratory failure (of note, initial blood gas obtained on 02/27/2024 was prior to her starting on BiPAP)
#Very severe restrictive lung defect (post-bronchodilator FVC: 1.41 L / 30%, T%, VC: 40% via PFT from 12/02/2023)
#Severe gas exchange capacity defect that normalizes when accounting for alveolar volume involving gas exchange (DLcoO: 37%, DLco/VA: 87% via PFT from 12/02/2023)
#Hypernatremia
#Metabolic alkalosis due to chronic hypercapnic respiratory failure
#Transaminitis - resolved
#Elevated proBNP
#History of chronic respiratory failure requiring tracheostomy and PEG placement (12/24/2022) with decannulation in 02/2023 - this event was due to some unknown cause of her hypoxia
# History of influenza A + MRSA pneumonia in March 2023 requiring intubation with trach/PEG placed on 04/06/2023 and decannulated on 04/23/2023
#Chronic GERD
#History of RLE DVT in the soleal vein (Dx on 12/10/2022)
#History of valvular heart disease with moderate TR and moderate pulmonary hypertension (seen on TTE from 12/09/2022)
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
decompressive hemicraniectomy (11/2022) + left cranioplasty (01/17/2023), history of oropharyngeal dysphagia s/p PEG (March 2022), former tobacco smoker (18-[id number]-dywg history, quit 2020), and anxiety disorder
Plan:
Continue with antibiotics with ceftriaxone/doxycycline, and would complete a 7-day course assuming she continues to clinically improve and remains afebrile for 48 hours prior to stopping antibiotics
Maintain SpO2 >90-94%
Continue with BiPAP at 12/5cmH2O with sleep and prn during the day
Continue with supplemental oxygen as needed through the BiPAP to maintain SpO2 goals as above
I consulted CM to see if we can get her a BiPAP upon discharge; the patient is amenable to doing this and using BiPAP at home
Recommend outpatient sleep study with titration as she would only qualify for Trilogy from inpatient set up
Consult PT/OT given her severe restrictive lung defect that she has; she may benefit from PT services as an outpatient (they are rec'd home health)
Check ambulatory pulse oximetry prior to discharge
Although her proBNP is elevated, she does not clinically appear to be volume overloaded or in acute decompensated heart failure, nor is there any evidence of acute pulmonary edema seen on CXR
Comparatively, her proBNP is actually less than it was back in November 2022 when it was 2980 (currently 1750)
Hold off on diuresis for now
- Maintain MAP>65
- She does take midodrine at home; ok to continue this with holding parameters
- Replete electrolytes with K>4, Mg>2
- Maintain euglycemia with goal BG 140-180
- Trend H/H and transfuse if needed to keep Hb>7g/dL; keep plt>20k, unless there is concern for bleeding then keep plt>50k
- prn nebulized bronchodilators - not currently bronchospastic
- Incentive spirometer encouraged 10x per hour for at least 4 hrs a day
- DVT ppx: SCDs given her Hx of subdural hematoma requiring decompressive hemicraniectomy in November 2022
Discharge planning per team
-----
Total time spent today was 36 minutes for this encounter. Time includes reviewing laboratory test/imaging results, reviewing pertinent medical records, obtaining and reviewing medical history, performing an appropriate exam, ordering medications,
tests and procedures. Time also includes documentation of this encounter, coordinating patient care and communicating with other healthcare professionals. Total time does not include separately billed tests performed on this date of service.
Subjective Data
-
Date of Service:
Date of Service: March 03, 2024
Chief Complaint: Pulmonary Follow Up
Subjective:
No new complaints, remains stable
No events
Objective Data
Data Reviewed
Vital Signs / I&O / Oxygen:
Vital Signs
Temp Pulse Resp BP Pulse Ox
98.1 F 86 16 99/60 84
03/03/24 07:44 03/03/24 07:44 03/03/24 07:44 03/03/24 07:44 03/03/24 07:44
Intake and Output
03/02/24 03/03/24 03/04/24
06:59 06:59 06:59
Intake Total 1200 / 1200 1740 / 1740
Balance 1200 / 1200 1740 / 1740
SaO2 84
Nasal Cannula flow liters per 1
minute
Physical Exam
General: Respiratory Distress (negative), Comfortable, Chills (negative) and Sweats (negative)
HEENT: Normocephalic, Anicteric and Moist Mucous Membranes
Cardiovascular: S1-S2, Rub (negative) and Peripheral Edema (negative)
Respiratory: Wheeze (negative), Crackles (Bibasilar), Rhonchi (negative), Non-Labored Respirations and Stridor (negative)
GI: Soft, Non Distended, Non Tender and Normal Bowel Sounds
Neurology: AO x 3 and Tremors (negative)
Skin: Warm, Dry, Cyanosis (negative) and Jaundice (negative)
Labs/Micro/Reports
Lab Data
03/01/24 05:54
03/01/24 05:54
--- NOTE | 2024-03-03 10:49 | CM ---
CM reviewed pt with Dr lopez and Dr Billy/price
Discharge today- will need outpt studies per puljosefina
Plan for no bipap or Trilogy on dc
Update to [facility] via [facility]
Update to pt bedside
Update to spouse over phone
Update to [facility]
Discharge Disposition- home with [facility], spouse will transport
VN Fax- [phone]
--- NOTE | 2024-03-03 10:58 | W.PN.HOSP.TC ---
Today's Communication/Plan
-
dc
Assessment / Plan
Assessment / Plan
48yo F with PMHx of DVT, SDH, HFpEF came with confusion, on 1 L chronci home O2, found hypercarbic respiratory failure with RLL pneumonia. Improved and weaned off O2. As per pulmponologist - will need outpatient sleep study for BiPAP and since no
clear indication yue pressures - cannot recommend Trilogy. Patient improved to baseline and pulmonology will establish close follow up. Medically stable for d/c
A/P:
#Acute septic encephalopathy 2/2 pneumonia
#Acute on chronic hypoxic hypercarbic respiratory failure with acute RLL pneumonia with unspecified organism
#Restrictive lung disease with PMHX of trach
Rocephin/Doxy as per pulmonologoist consult
Outpatient BiPAP and O2 assessment by resp: no desaturation on ambulation - cont home 1L O2 at night
bronchodilators
#Moderate TR
#GERD
cont home meds
DVT ppxSCDs 2/2 Hx of SDH
Full code
I have spent at least 38min reviewing chart, test results, communication with consultants and direct patientcare
Anticipated Discharge: Today
Subjective/Interval History
-
Date of Service: March 03, 2024
Objective Data
-
Vital Signs:
Vital Signs
Temp Pulse Resp BP Pulse Ox
98.1 F 86 16 99/60 84
03/03/24 07:44 03/03/24 07:44 03/03/24 07:44 03/03/24 07:44 03/03/24 07:44
I&O
03/02/24 03/03/24 03/04/24
06:59 06:59 06:59
Intake Total 1200 / 1200 1740 / 1740
Balance 1200 / 1200 1740 / 1740
Review of Systems
-
History Source: Patient
All other systems: Reviewed and negative
Physical Exam
-
General: No Apparent Distress
HEENT: Normocephalic
Respiratory: Clear to Auscultation
Cardiac: Regular Rhythm
GI: Soft, Nontender and Nondistended
Musculoskeletal: No Clubbing, No Cyanosis and No Edema
Neuro: Awake, Alert, Oriented and AO x 3
Psych: Calm
--- NOTE | 2024-03-03 11:03 | W.DCSUMMARY ---
Addendum entered and electronically signed by Serg Tinajero MD 03/03/24 11:09:
COrrection: hypoxia with hypercarbia on intermittent home O2 use
Original Note:
Discharge Summary
Discharge Data
Date of Admission: 02/27/24
Date of Discharge: 03/03/24
-
Pending Results: No
Hospital Course
48yo F with PMHx of DVT, SDH, HFpEF came with confusion, on 1 L chronci home O2, found hypercarbic respiratory failure with RLL pneumonia. Improved and weaned off O2. As per pulmponologist - will need outpatient sleep study for BiPAP and since no
clear indication yue pressures - cannot recommend Trilogy. Patient improved to baseline and pulmonology will establish close follow up. Medically stable for d/c
I have spent at least 38min reviewing chart, test results, communication with consultants and direct patientcare
Patient was managed for:
#Acute septic encephalopathy 2/2 pneumonia
#Acute on chronic hypoxic hypercarbic respiratory failure with acute RLL pneumonia with unspecified organism
#Restrictive lung disease with PMHX of trach
#Moderate TR
#GERD
Discharge Plan
-
Patient Disposition: Home with Home Care
Discharge Diagnosis/Procedures: Acute on chronic hypercapnic hypoxemic respiratory failure due to right-sided pneumonia, toxic metabolic encephalopathy, history of diastolic congestive heart failure without exacerbation, history of isolated deep
venous thrombosis of the right soleal vein, history of subdural hematoma from anticoagulation from the DVT history, history of moderate tricuspid regurgitation, gastroesophageal reflux disease
Condition: Good
Diet: As tolerated and Regular
Activity: As tolerated
Driving Restrictions: As prior to admission
Bathing Restrictions: None
Referrals:
Francisco Ovalles MD [Active] - in less than 1 week
Shahrzad Cordova PA-C [Family Provider] - in less than 1 week
Prescriptions:
New
doxycycline hyclate 100 mg Capsule
100 mg PO Q12 Qty: 8 0RF
cefdinir 300 mg capsule
300 mg PO Q12H Qty: 8 0RF
Continued
famotidine [Pepcid] 20 mg Tablet
20 mg PO BID
midodrine 5 mg Tablet
10 mg PO DAILY
cyanocobalamin (vitamin B-12) 1,000 mcg Tablet
1,000 mcg PO DAILY
ascorbic acid (vitamin C) [Vitamin C] 500 mg Tablet
500 mg PO DAILY
ferrous sulfate 325 mg (65 mg iron) Tablet
325 mg PO Q48H
cholecalciferol (vitamin D3) 25 mcg (1,000 unit) Tablet
25 mcg PO DAILY
Discharge Orders:
Discharge Patient (As Directed); Ordered 03/03/24
Ordered By: Serg Tinajero
Discharge Date and Time
Print Language: KHMER
[2024-03-03 11:24] VITALS: BP 115/68
== END 2024-03-03 12:28 | disposition home health service (06) | DRG 193 ==
LOC: 3 WEST ACU 19:35
PROVIDERS: Internal Medicine; Nurse Practitioner Primary Care; Physician Assistant; ADMITTING PHYSICIAN Internal Medicine; ATTENDING PHYSICIAN Internal Medicine; CONSULT PHYSICIAN Internal Medicine Critical Care Medicine; EMERGENCY PHYSICIAN Emergency Medicine; FAMILY PHYSICIAN Physician Assistant Medical
PROC: 5A09457 Assistance with Respiratory Ventilation, 24-96 Consecutive Hours, Continuous Positive Airway Pressure (ICD-10-PCS; 2024-02-27)
DX: J18.9 Pneumonia, unspecified organism (principal); G92.8 Other toxic encephalopathy; J96.22 Acute and chronic respiratory failure with hypercapnia; R65.20 Severe sepsis without septic shock; J96.21 Acute and chronic respiratory failure with hypoxia; I50.32 Chronic diastolic (congestive) heart failure; E87.4 Mixed disorder of acid-base balance; E87.0 Hyperosmolality and hypernatremia; J98.4 Other disorders of lung; I07.1 Rheumatic tricuspid insufficiency; K21.9 Gastro-esophageal reflux disease without esophagitis; R32 Unspecified urinary incontinence; Z82.0 Family history of epilepsy and other diseases of the nervous system; Z86.718 Personal history of other venous thrombosis and embolism; M41.9 Scoliosis, unspecified; D50.9 Iron deficiency anemia, unspecified; E66.9 Obesity, unspecified; Z68.32 Body mass index [BMI] 32.0-32.9, adult; Z87.01 Personal history of pneumonia (recurrent); G89.29 Other chronic pain; R13.10 Dysphagia, unspecified; Z87.891 Personal history of nicotine dependence; E87.6 Hypokalemia; E83.39 Other disorders of phosphorus metabolism
CPT/HCPCS: 71046; 80053; 82805; 83735; 83880; 84100; 84145; 85025; 85027; 85610; 85730; 87502; 87811; 92610; 94660; 94762; 96374; 97116; 97163; 97166; 97530; 99291

== ENCOUNTER → 2024-04-08 13:18 | Outpatient (REF) | payer BC, SELFPAY | LOC: DHSLP 13:18 | PROVIDERS: ATTENDING PHYSICIAN Internal Medicine; FAMILY PHYSICIAN Physician Assistant Medical | DX: G47.33 Obstructive sleep apnea (adult) (pediatric) (principal); R09.02 Hypoxemia | CPT/HCPCS: 95811 ==

== ENCOUNTER → 2024-10-07 07:42 | Outpatient (REF) | payer BC, SELFPAY | LOC: REG 07:42 | PROVIDERS: ATTENDING PHYSICIAN Internal Medicine Critical Care Medicine; FAMILY PHYSICIAN Physician Assistant Medical | DX: I26.99 Other pulmonary embolism without acute cor pulmonale (principal); J96.02 Acute respiratory failure with hypercapnia; Z87.891 Personal history of nicotine dependence | CPT/HCPCS: 36415 ==

== ENCOUNTER → 2024-10-13 13:26 | Outpatient (REF) | payer BC, SELFPAY ==
[2024-10-13 14:00] LABS: B.E. 8.7 mmol/L; HCO3 34.1 mmol/L (21-28); O2 Saturation % 98.7 % (94-98); PCO2 49 mmHg (32-35); PO2 87 mmHg (83-108)
== END ==
LOC: REG 13:26
PROVIDERS: ATTENDING PHYSICIAN Internal Medicine Critical Care Medicine; FAMILY PHYSICIAN Physician Assistant Medical
DX: I26.99 Other pulmonary embolism without acute cor pulmonale (principal); J96.02 Acute respiratory failure with hypercapnia; J96.12 Chronic respiratory failure with hypercapnia
CPT/HCPCS: 36415; 36600; 82805

== ENCOUNTER → 2024-10-14 10:52 | Outpatient (REF) | payer BC, SELFPAY | LOC: HWRAD 10:52 | PROVIDERS: ATTENDING PHYSICIAN Internal Medicine Critical Care Medicine; FAMILY PHYSICIAN Physician Assistant Medical | DX: Z87.891 Personal history of nicotine dependence (principal) | CPT/HCPCS: 71250 ==